=== PATIENT | male | born 1990 | race African-American/Black ===

== ENCOUNTER 2018-04-11 09:28 | Emergency (ER) | payer SELFPAY ==
[~2018-04-11] VITALS: Ht 182.9 cm; Wt 141.0 kg
[2018-04-11] MEDS ORDERED: CYCLOBENZAPRINE 10MG TABLET PO ONE (10:00)
[2018-04-11] MEDS ORDERED: IBUPROFEN 800MG TABLET PO ONE (10:00)
[2018-04-11 12:00] VITALS: BP 160/85
== END 2018-04-11 12:09 | disposition home or self-care (01) ==
LOC: ER 09:28
DX: S63.592A Other specified sprain of left wrist, initial encounter (principal); S43.491A Other sprain of right shoulder joint, initial encounter; J45.909 Unspecified asthma, uncomplicated; F17.200 Nicotine dependence, unspecified, uncomplicated; Z88.8 Allergy status to other drugs, medicaments and biological substances; V43.52XA Car driver injured in collision with other type car in traffic accident, initial encounter; Y93.89 Activity, other specified; Y92.89 Other specified places as the place of occurrence of the external cause; Y99.8 Other external cause status
CPT/HCPCS: 73030; 73110; 73130; 99284

== ENCOUNTER 2018-09-20 09:41 | Emergency (ER) | payer SELFPAY ==
[~2018-09-20] VITALS: Ht 188 cm; Wt 175.0 kg
[2018-09-20] MEDS ORDERED: KETOROLAC 30MG/ML VIAL IV STA (11:04)
[2018-09-20] MEDS ORDERED: VISCOUS LIDOCAINE 2% 15 ML UDC PO STA (11:04)
[2018-09-20] MEDS ORDERED: SODIUM CHLORIDE 0.9% 1,000 ML IV ONE (11:04)
[2018-09-20 11:51] LABS: BASOPHILS % 1.1 % (0.0-2.0); HEMATOCRIT. 42.7 % (42.0-52.0); HEMOGLOBIN. 14.2 g/dL (14.0-18.0); LYMPHOCYTES % 32.7 % (20.0-50.0); MEAN CORPUSCULAR HEMOGLOBIN 29.3 pg (28.0-32.0); MEAN CORPUSCULAR VOLUME 87.8 fL (80.0-94.0); MEAN PLATELET VOLUME 8.5 fl (7.4-10.4); MONOCYTES % 10.4 % (2.0-8.0); NEUTROPHILS % 49.8 % (40.0-76.0); PLATELET 238 x1000/uL (130-400); RED BLOOD CELL COUNT 4.86 mill/uL (4.7-6.1); RED CELL DISTRIBUTION WIDTH 14.3 % (11.6-14.6)
[2018-09-20 11:52] LABS: CHLORIDE 105 mEq/L (98-107)
[2018-09-20 13:00] VITALS: BP 127/73
[2018-09-20] MEDS ORDERED: VISCOUS LIDOCAINE 2% 15 ML UDC MM STA (13:05)
== END 2018-09-20 13:41 | disposition home or self-care (01) ==
LOC: ER 09:41
DX: J02.9 Acute pharyngitis, unspecified (principal); B34.9 Viral infection, unspecified
CPT/HCPCS: 36415; 71045; 80053; 85025; 96374; 99284; J1885; J7030

== ENCOUNTER 2022-08-30 08:40 | Emergency (ER) | payer OTHER ==
[~2022-08-30] VITALS: Ht 188 cm; Wt 150.0 kg
[2022-08-30 09:47] VITALS: BP 169/101
== END 2022-08-30 16:16 | disposition left against medical advice (07) ==
LOC: ER 08:40
DX: Z53.21 Procedure and treatment not carried out due to patient leaving prior to being seen by health care provider (principal)
CPT/HCPCS: 99281

== ENCOUNTER 2022-11-11 06:24 | Emergency (ER) | payer MEDICAID, OTHER ==
[~2022-11-11] VITALS: Ht 188 cm; Wt 186.1 kg
[2022-11-11 06:51] VITALS: BP 164/89
[2022-11-11] MEDS ORDERED: DEXAMETHASONE 4MG/ML 1ML VIAL IM ONE (07:30)
[2022-11-11] MEDS ORDERED: KETOROLAC 60MG/2ML VIAL IM ONE (07:30)
[2022-11-11] MEDS ORDERED: AMOX1TAB16 PO (08:03)
== END 2022-11-11 08:47 | disposition home or self-care (01) ==
LOC: ER 06:24
DX: J02.0 Streptococcal pharyngitis (principal); R21 Rash and other nonspecific skin eruption; Z87.891 Personal history of nicotine dependence; Z88.8 Allergy status to other drugs, medicaments and biological substances
CPT/HCPCS: 87430; 87593; 96372; 99284; J1100; J1885

== ENCOUNTER 2025-04-03 14:32 | Inpatient (IN) | payer SELFPAY ==
[~2025-04-03] VITALS: Ht 188 cm; Wt 168.3 kg
[~2025-04-03 14:32] MED LIST: AMOX1TAB16 PO
[2025-04-03 14:40] VITALS: O2SAT 99
[2025-04-03 15:43] LABS: BASOPHILS % 1.4 % (0.0-2.0); EOSINOPHILS % 3.0 % (0.0-5.0); HEMATOCRIT. 49.7 % (42.0-52.0); HEMOGLOBIN. 16.6 g/dL (14.0-18.0); LYMPHOCYTES % 37.8 % (20.0-50.0); MEAN PLATELET VOLUME 9.6 fl (7.4-10.4); MONOCYTES % 7.5 % (2.0-8.0); NEUTROPHILS % 50.3 % (40.0-76.0); PLATELET 311 x1000/uL (130-400); RED BLOOD CELL COUNT 5.82 mill/uL (4.7-6.1); RED CELL DISTRIBUTION WIDTH 13.9 % (11.6-14.6)
[2025-04-03 15:55] LABS: CREATININE 1.3 mg/dL (0.6-1.3); UREA NITROGEN BLOOD 11 mg/dL (9-23)
[2025-04-03 15:57] LABS: TROPONIN I HIGH SENSITIVITY 6 ng/L (3.0-53)
[2025-04-03 16:46] LABS: CLARITY URINE CLEAR (CLEAR); COLOR URINE YELLOW (YELLOW); GLUCOSE URINE 3+ (NEGATIVE); KETONES URINE 1+ (NEGATIVE); LEUKOCYTE ESTERASE URINE NEGATIVE (NEGATIVE); NITRITE URINE NEGATIVE (NEGATIVE); OCCULT BLOOD URINE TRACE (NEGATIVE); PH URINE 5.5 (4.5-8.0); PROTEIN URINE NEGATIVE (NEGATIVE); SPECIFIC GRAVITY URINE 1.035 (1.005-1.030); UROBILINOGEN URINE 0.2 E.U./dL (0.2-1.0)
[2025-04-03 17:10] LABS: BACTERIA URINE 1+; SQUAMOUS EPITHELIAL CELL URINE 1+ /lpf (RARE/1+); WBC URINE 0-2 /hpf (0-2)
[2025-04-03] MEDS: INSULIN REGULAR (HUMULIN R) 1000UNITS/10ML VIAL IV ONE (18:13)
[2025-04-03] MEDS: SODIUM CHLORIDE 0.9% 1,000 ML IV ONE ×2 (18:14)
[2025-04-03] MEDS ORDERED: MAGNESIUM/ALUMINUM HYDROXIDE/SIMETHICONE 30ML UDC PO PRN (23:30)
[2025-04-03] MEDS ORDERED: ONDANSETRON HCL 4MG/2ML INJ IV PRN (23:30)
[2025-04-03] MEDS ORDERED: DEXTROSE 50% WATER 50ML SYRINGE IV PRN (23:30)
[2025-04-03] MEDS ORDERED: DIPHENHYDRAMINE 50MG/ML VIAL IV PRN (23:30)
[2025-04-03] MEDS ORDERED: ACETAMINOPHEN 325MG TABLET PO PRN ×2 (23:30)
[2025-04-03] MEDS ORDERED: ZOLPIDEM TARTRATE 5MG TABLET PO PRN (23:30)
[2025-04-03] MEDS ORDERED: CLONIDINE 0.1MG TABLET PO PRN (23:30)
[2025-04-04] MEDS: AMLODIPINE 5MG TABLET PO SCH ×2 (00:01→17:30)
[2025-04-04] MEDS: INSULIN GLARGINE 100 UNITS/ML SUBCUT SCH ×2 (00:03→21:52)
[2025-04-04 01:55] VITALS: BP 127/58; PULSE 84; RESP 18; TEMP 36.6
[2025-04-04] MEDS: BLOOD SUGAR DIAGNOSTIC STRIP TEST SCH (05:31)
[2025-04-04] MEDS: SODIUM CHLORIDE 0.9% 3ML FLUSH IVF SCH (05:31)
[2025-04-04] MEDS: INSULIN GLARGINE 100 UNITS/ML SUBCUT NR (05:53)
[2025-04-04] MEDS: INSULIN LISPRO 100 UNITS/ML SUBCUT SCH (06:56)
[2025-04-04 08:00] VITALS: BP 162/76; PULSE 88; RESP 20; TEMP 36.3; O2SAT 99
[2025-04-04] MEDS: CLOTRIMAZOLE 1% CREAM 15GM TOP SCH (09:00)
[2025-04-04] MEDS: FLUCONAZOLE 100MG TABLET PO SCH (09:07)
[2025-04-04] MEDS: ENOXAPARIN 40MG/0.4ML SYR SUBCUT SCH (09:08)
[2025-04-04] MEDS: LISINOPRIL 5MG TABLET PO SCH (09:08)
[2025-04-04] MEDS ORDERED: KETOROLAC 30MG/ML VIAL IV PRN (10:45)
[2025-04-04] MEDS ORDERED: TRAMADOL 50MG TABLET PO PRN ×2 (10:45)
[2025-04-04 12:00] VITALS: BP 153/82; PULSE 93; RESP 20; TEMP 36.4; O2SAT 95
[2025-04-04] MEDS: IBUPROFEN 600MG TABLET PO PRN (12:47)
[2025-04-04 16:00] VITALS: BP 100/68; PULSE 69; RESP 20; TEMP 36.6; O2SAT 99
[2025-04-04 17:42] LABS: *AMPHETAMINES SCREEN URINE NEGATIVE (NEGATIVE); *BARBITURATES SCREEN URINE NEGATIVE (NEGATIVE); *BENZODIAZEPINES SCREEN URINE NEGATIVE (NEGATIVE)
[2025-04-04 17:43] LABS: *COCAINE SCREEN URINE NEGATIVE (NEGATIVE); CANNABINOID URINE SCREEN PRESUMPTIVE POSITIVE (NEGATIVE); ECSTASY MDMA SCREEN URINE NEGATIVE (NEGATIVE); METHADONE URINE SCREEN NEGATIVE (NEGATIVE); OPIATES URINE SCREEN NEGATIVE (NEGATIVE); PHENCYCLIDINE URINE SCREEN NEGATIVE (NEGATIVE)
[2025-04-04] MEDS: METFORMIN HCL 500MG TABLET PO SCH (17:51)
[2025-04-04 20:00] VITALS: BP 119/84; PULSE 95; RESP 18; TEMP 35.6; O2SAT 98
[2025-04-04] MEDS ORDERED: INSULIN GLARGINE 100 UNITS/ML SUBCUT SCH (22:00)
[2025-04-04] MEDS ORDERED: FLUCONAZOLE 150MG TABLET PO SCH (23:45)
[2025-04-05] VITALS: BP 136/71; PULSE 74; RESP 18; TEMP 36.3; O2SAT 97
[2025-04-05 04:00] VITALS: BP 143/72; PULSE 83; RESP 18; TEMP 36.2; O2SAT 100
[2025-04-05] MEDS: INSULIN LISPRO 100 UNITS/ML SUBCUT SCH (07:54)
[2025-04-05 08:00] VITALS: BP 146/104; PULSE 100; RESP 20; TEMP 36.9; O2SAT 100
[2025-04-05 09:03] LABS: LDL CHOLESTEROL 100 mg/dL (5-100)
[2025-04-05 09:04] LABS: ASPARTATE AMINOTRANSFERASE 21 IU/L (<34); T4 FREE 1.20 ng/dL (0.89-1.76)
[2025-04-05 09:05] LABS: BILIRUBIN TOTAL 0.5 mg/dL (0.1-1.0); PROTEIN TOTAL 6.9 g/dL (6.0-8.3)
[2025-04-05] MEDS: LINAGLIPTIN 5MG TABLET PO SCH (10:27)
[2025-04-05 10:28] LABS: CREATININE 0.8 mg/dL (0.6-1.3); TRIGLYCERIDE 300 mg/dL (0-150); UREA NITROGEN BLOOD 9 mg/dL (9-23)
[2025-04-05 16:00] VITALS: BP 131/76; PULSE 83; RESP 20; TEMP 36.7; O2SAT 97
[2025-04-05] MEDS: ATORVASTATIN CALCIUM 40MG TABLET PO SCH (22:00)
[2025-04-05] MEDS: INSULIN GLARGINE 100 UNITS/ML SUBCUT SCH (22:07)
[2025-04-06] VITALS: BP 132/76; PULSE 72; RESP 18; TEMP 36.4; O2SAT 96
[2025-04-06 04:00] VITALS: BP 139/78; PULSE 83; RESP 18; TEMP 36.2; O2SAT 95
[2025-04-06 08:00] VITALS: BP 156/87; PULSE 91; RESP 18; TEMP 36.5; O2SAT 99
[2025-04-06 12:00] VITALS: BP 113/71; PULSE 73; RESP 18; TEMP 36.6; O2SAT 100
[2025-04-06 16:00] VITALS: BP 131/72; PULSE 78; RESP 18; TEMP 36.5; O2SAT 99
[2025-04-06] MEDS ORDERED: INSU100I28 SQ (20:05)
[2025-04-06] MEDS ORDERED: METF-1150 MT (20:09)
[2025-04-06] MEDS ORDERED: LISI10TA26 MT (20:11)
[2025-04-06] MEDS ORDERED: FLUC100T MT (20:22)
[2025-04-06] MEDS ORDERED: LINA5TAB MT (20:23)
[2025-04-06] MEDS ORDERED: BUTE12CR2 TP (20:24)
[2025-04-08 07:07] LABS: *CREATININE RANDOM URINE 130.2 mg/dL (Not Estab.); MICROALBUMIN RANDOM URINE 9.5 ug/mL (Not Estab.); MICROALBUMIN/CREATININE RATIO 7.0 mg/g creat (0-29)
== END 2025-04-06 20:45 | disposition home or self-care (01) | DRG 420 ==
LOC: ER 14:32 → 8WST 19:53 → ENRESERV 20:48
PROVIDERS: ADMIT Internal Medicine; ATTEND Internal Medicine
DX: E11.00 Type 2 diabetes mellitus with hyperosmolarity without nonketotic hyperglycemic-hyperosmolar coma (NKHHC) (principal); E87.1 Hypo-osmolality and hyponatremia; I10 Essential (primary) hypertension; Z68.42 Body mass index [BMI] 45.0-49.9, adult; E66.01 Morbid (severe) obesity due to excess calories; L30.9 Dermatitis, unspecified; N48.1 Balanitis; J45.909 Unspecified asthma, uncomplicated
CPT/HCPCS: 36415; 71045; 80048; 80053; 80061; 80305; 81003; 82010; 82043; 82570; 82962; 83036; 84439; 84443; 84484; 84681; 85025; 93005; 99285; A4606; J1650; J1815; J7030